=== PATIENT | male | born 1950 | race Caucasian/White ===

== ENCOUNTER 2024-01-21 09:27 | Day surgery (SDC) | payer MEDICARE, BC ==
[~2024-01-21 09:27] MED LIST: Sodium Chloride 0.9% 10 ML Syringe FLUSH PRN; Sodium Chloride 0.9% 10 ML Syringe FLUSH SCH
[2024-01-21] MEDS: Lactated Ringers 1,000 ML IV SCH (10:00)
[2024-01-21] MEDS ORDERED: Propofol 200 MG/20 ML SDV ONE ×2 (11:57)
[2024-01-21] MEDS ORDERED: Lidocaine 1% 4 ML ONE (11:57)
[2024-01-21 14:04] VITALS: BP 124/65; PULSE 66
== END 2024-01-21 13:50 | disposition home or self-care (01) ==
LOC: JD.SDS 09:27
PROVIDERS: ATTEND Surgery
DX: Z12.11 Encounter for screening for malignant neoplasm of colon (principal); D12.0 Benign neoplasm of cecum; D12.2 Benign neoplasm of ascending colon; K64.8 Other hemorrhoids; I10 Essential (primary) hypertension; K21.9 Gastro-esophageal reflux disease without esophagitis; E78.2 Mixed hyperlipidemia; F32.A Depression, unspecified; Z87.891 Personal history of nicotine dependence; Z79.82 Long term (current) use of aspirin; Z79.899 Other long term (current) drug therapy; Z80.0 Family history of malignant neoplasm of digestive organs
CPT/HCPCS: 45380; J2704; J7120; 00811; 99100; J3490